=== PATIENT | male | born 1950 | race Asian ===

== ENCOUNTER 2016-08-21 07:50 | Outpatient (CLI) | payer OTHER | END 2016-08-21 07:51 | disposition home or self-care (01) | DX: K74.60 Unspecified cirrhosis of liver (principal); F10.10 Alcohol abuse, uncomplicated; B19.20 Unspecified viral hepatitis C without hepatic coma; D69.6 Thrombocytopenia, unspecified; I10 Essential (primary) hypertension; Z12.5 Encounter for screening for malignant neoplasm of prostate ==

== ENCOUNTER 2016-09-23 15:03 | Outpatient (CLI) | payer OTHER | END 2016-09-23 15:04 | disposition home or self-care (01) | DX: R42 Dizziness and giddiness (principal) ==

== ENCOUNTER 2016-10-06 07:42 | Outpatient (CLI) | payer OTHER ==
[2016-10-06] MEDS ORDERED: GADOBUTROL 10 MMOL/10 ML VIAL IVP ONE (08:39)
== END 2016-10-06 07:43 | disposition home or self-care (01) ==
DX: R42 Dizziness and giddiness (principal)
CPT/HCPCS: 70553; A9585

== ENCOUNTER 2018-01-23 11:20 | Emergency (ER) | payer OTHER ==
[2018-01-23 11:36] LABS: BASOPHILS % (AUTO) 0.6 %; EOSINOPHILS # (AUTO) 0.2 10^3/uL (0.0-0.7); EOSINOPHILS % (AUTO) 2.4 %; HGB - HEMOGLOBIN 14.9 g/dL (14.0-18.0); LYMPHOCYTES # (AUTO) 1.8 10^3/uL (1.5-3.5); LYMPHOCYTES % (AUTO) 22.9 %; MEAN CORPUSCULAR HEMOGLOBIN 29.4 pg (27.0-31.0); MEAN CORPUSCULAR HGB CONC 33.8 g/dL (32.0-36.0); MEAN CORPUSCULAR VOLUME 87.2 fL (80.0-94.0); MEAN PLATELET VOLUME 7.3 fL (7.4-11.4); MONOCYTES # (AUTO) 0.7 10^3/uL (0.0-1.0); MONOCYTES % (AUTO) 8.8 %; NEUTROPHILS # (AUTO) 5.1 10^3/uL (1.5-6.6); NEUTROPHILS % (AUTO) 65.3 %; PLT - PLATELET COUNT 102 10^3/uL (130-450); RED BLOOD COUNT 5.07 10^6/uL (4.70-6.10); RED CELL DISTRIBUTION WIDTH 14.2 % (12.0-15.0); WHITE BLOOD COUNT 7.8 x10^3/uL (4.8-10.8)
--- NOTE | 2018-01-23 11:38 | ED Physician Documentation ---
History of Present Illness - Stated complaint Stated Complaint: SZ - Chief complaint Chief Complaint: Neuro - Additonal information Additional information: hx from pt and 67 male hx HTN and per EMR Hep C to ED for seziure felt near syncoal then had 1 min of LOC with generalized tremors and about a 5 min perior of confusion c/w post ictal period no recent injury did not fall during seizure was breathing, no color change denies BREWER CP palp good health recently no fever, mild cough, no NVD has been on adiet and lost 50 ln takes a keto supplement and tumeric but no stimulants no EtOH no drugs smokes had brain MRI a year ago for light headed sx and it showed asymmetric CSF and he was seen by neuro who felt this was a benign finding Review of Systems Constitutional: denies: Fever, Chills Throat: denies: Sore throat Cardiac: denies: Chest pain / pressure, Palpitations Respiratory: reports: Cough. denies: Dyspnea GI: denies: Abdominal Pain, Nausea, Vomiting : denies: Dysuria Neurologic: reports: Syncope, Seizure, Confused. denies: Focal weakness, Numbness, Headache, Head injury Endocrine: denies: Easy bruising / bleeding Immunocompromised: denies: Immunocompromised PD PAST MEDICAL HISTORY - Past Medical History Past Medical History: Yes Cardiovascular: Hypertension Respiratory: None Endocrine/Autoimmune: None GI: GERD, Hepatitis : None Psych: Depression, Other Musculoskeletal: Osteoarthritis, Fatigue, Chronic back pain Derm: None - Past Surgical History General: Colonoscopy Ortho: Other - Present Medications Home Medications: Ambulatory Orders Medication Instructions Recorded Confirmed Hydrochlorothiazide 25 mg PO DAILY 10/24/15 10/24/15 Metoprolol Tartrate 50 mg PO BID 10/24/15 10/24/15 - Allergies Allergies/Adverse Reactions: Allergies Allergy/AdvReac Type Severity Reaction Status Date / Time No Known Drug Allergies Allergy Verified 10/24/15 10:41 - Social History Does the pt smoke?: Yes Smoking Status: Current every day smoker Does the pt drink ETOH?: No Does the pt have substance abuse?: No - Immunizations Immunizations are current?: Yes PD ED PE NORMAL - Vitals Vital signs reviewed: Yes - General General: Alert and oriented X 3 - HEENT HEENT: Atraumatic, PERRL - Neck Neck: Supple, no meningeal sign - Cardiac Cardiac: RRR - Respiratory Respiratory: No respiratory distress - Derm Derm: Normal color - Neuro Neuro: Alert and oriented X 3, reed dipper 2-12 intact, No motor deficit, No sensory deficit, Normal speech, Other (NIHSS zero) Eye Opening: Spontaneous Motor: Obeys Commands Verbal: Oriented GCS Score: 15 Results - Vitals Vitals: Vital Signs - 24 hr 01/23/18 01/23/18 01/23/18 11:25 12:19 12:46 Temperature 36.2 C L Heart Rate 40 L 62 66 Respiratory 18 18 16 Rate Blood Pressure 183/93 H 155/73 H 155/73 H O2 Saturation 100 100 97 01/23/18 13:24 Temperature Heart Rate 70 Respiratory 16 Rate Blood Pressure 129/67 O2 Saturation 95 Oxygen O2 Source Room air - EKG (time done) 1125 Rate: Rate (enter#) (53) Rhythm: Sinus bradycardia [place]: Normal Intervals: Normal [place] Ischemia: Normal ST segments - Labs Labs: Laboratory Tests 01/23/18 01/23/18 01/23/18 11:30 11:30 11:48 WBC 7.8 RBC 5.07 Hgb 14.9 Hct 44.2 MCV 87.2 MCH 29.4 MCHC 33.8 RDW 14.2 Plt Count 102 L MPV 7.3 L Neut # (Auto) 5.1 Lymph # (Auto) 1.8 [place] # (Auto) 0.7 Eos # (Auto) 0.2 Baso # (Auto) 0.0 Absolute Nucleated RBC 0.00 Nucleated RBC % 0.1 PT 13.6 H INR 1.2 Sodium 137 Potassium 3.4 L Chloride 100 L Carbon Dioxide 27 Anion Gap 10.0 BUN 11 Creatinine 1.1 Estimated GFR (MDRD) 67 L Glucose 113 H Calcium 9.5 Total Bilirubin 1.3 H AST 22 ALT 14 Alkaline Phosphatase 61 Total Protein 7.7 Albumin 4.7 Globulin 3.0 Albumin/Globulin Ratio 1.6 Lipase 40 - Rads (name of study) CXR Radiology: See rad report (nodule R lung base rec rpt with nippler marker) CT head Radiology: See rad report (no acute - stable from 2017) PD MEDICAL DECISION MAKING - ED course Complexity details: reviewed old records (HR is dipping into the 30s, sinus tiara), considered differential (suspect he has lost sig wt due to his diet and now his BB dose is too much and he is having med related sinus tiara causing syncope) ED course: upon initially arriving pt periodically had HR dip into the 30s some bigeminy noted on tele as well CT head no new acute process non focal neuro exam no other cause for syncope seizure identified will hold BB and dc with close PMD follow up slightly elev bili noted, pt has hx liver dx, prior bili was 1.1, no abd TTP - Sepsis Event Vital Signs: Vital Signs - 24 hr 01/23/18 01/23/18 01/23/18 11:25 12:19 12:46 Temperature 36.2 C L Heart Rate 40 L 62 66 Respiratory 18 18 16 Rate Blood Pressure 183/93 H 155/73 H 155/73 H O2 Saturation 100 100 97 01/23/18 13:24 Temperature Heart Rate 70 Respiratory 16 Rate Blood Pressure 129/67 O2 Saturation 95 Oxygen O2 Source Room air Departure - Departure Disposition: 01 Home, Self Care Clinical Impression: Bradycardia Syncope Qualifiers: Syncope type: unspecified Qualified Code(s): R55 - Syncope and collapse Condition: Good Instructions: ED Fainting Unkn Cause Follow-Up: Morris Juan MD [Primary Care Provider] - (Thursday for a recheck) Comments: Your labs looked fine except for a slightly low potassium which was replaced and a slightly elevated bilirubnin level which is not new for you. The CT scan of the brain was fine - no change from your prior MRI The xray was fine too - the radiologist thought you might have a lung nodule but it was just a nipple shadow I think you passed out because your heart was beating too slow - we saw your heart rate as low as 30s when you arrive I suspect that with your recent weight loss, the beta low dose is too much for you. I think it is safe for you to go home for the rest of the weekend if you have another person to drive you and stay with you. Do not take the metoprolol at all this Then follow up with Dr Juan Thursday for a recheck to decide of you should stop the metoprolol all together or just decrease the dose. 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
[2018-01-23 11:47] LABS: ALBUMIN 4.7 g/dL (3.2-5.5); ALBUMIN/GLOBULIN RATIO 1.6 (1.0-2.2); BILIRUBIN,TOTAL 1.3 mg/dL (0.2-1.0); CALCIUM 9.5 mg/dL (8.5-10.3); CREATININE 1.1 mg/dL (0.6-1.2); TOTAL PROTEIN 7.7 g/dL (6.7-8.2)
[2018-01-23 11:57] LABS: INR 1.2 (0.8-1.2); PT - PROTHROMBIN TIME 13.6 secs (9.9-12.6)
--- NOTE | 2018-01-23 12:11 | CT Report ---
Procedure Date: 01/23/2018 Accession Number: [id number] / [id number] Procedure: CT - Head W/O CPT Code: FULL RESULT: EXAM: CT HEAD EXAM DATE: 01/23/2018 11:50 AM. CLINICAL HISTORY: 1st time seizure. COMPARISON: Brain MRI 10/06/2016. TECHNIQUE: Multiaxial CT images were obtained from the foramen magnum to the vertex. Reformats: Sagittal and coronal. IV contrast: None. In accordance with CT protocol optimization, one or more of the following dose reduction techniques were utilized for this exam: automated exposure control, adjustment of mA and/or KV based on patient size, or use of iterative reconstructive technique. FINDINGS: Parenchyma: No intraparenchymal hemorrhage. No evidence of or CT findings of infarction. Bull-white differentiation is distinct. There is stable mild 3 mm midline shift to the right as before. Extraaxial Spaces: As seen on prior MRI from 2016, there is asymmetric prominence of the extra-axial fluid overlying the left cerebral hemisphere. This was thought to represent expanded CSF space rather than subdural hygroma or chronic subdural hematoma. No subdural or epidural collections identified. Ventricles: Normal in size and position. Sinuses and Orbits: Imaged paranasal sinuses, orbits, and mastoids show no significant abnormality. Bones: No evidence of fracture or calvarial defect. Other: None. IMPRESSION: 1. No acute intracranial abnormality including intracranial hemorrhage or CT evidence of acute stroke. 2. No intracranial mass. 3. No change in the appearance of the asymmetric prominence of the extra-axial fluid in the left cerebral hemisphere which is thought to represent expanded CSF space rather subdural hygroma or chronic subdural hematoma. In addition, there is midline shift to the right as before. These findings have been stable since September 2016. [facility]
--- NOTE | 2018-01-23 12:43 | XRAY Report ---
Procedure Date: 01/23/2018 Accession Number: [id number] / [id number] Procedure: XR - Chest 2 View X-Ray CPT Code: 72951 FULL RESULT: EXAM: CHEST RADIOGRAPHY EXAM DATE: 01/23/2018 12:11 PM. CLINICAL HISTORY: Right sided wheeze and cough. COMPARISON: 12/13/2014. TECHNIQUE: 2 views. FINDINGS: Lungs/Pleura: There is a small 9 mm nodule at the right lung base seen at the level of the posterior right 9th and 10th ribs. It is possible this is the nipple, but there is no definitive similar-appearing structure on the left side. This is not seen on the lateral view. No pleural effusions. No acute airspace disease. No pneumothorax. Mediastinum: Heart and mediastinal contours are unremarkable. Other: None. IMPRESSION: Small nodule at the right lung base is probably superimposed nipple. Recommend repeat frontal film with nipple marker. This was discussed with Dr. Zhang at 12:36 PM on 01/23/2018. [facility]
--- NOTE | 2018-01-23 13:23 | XRAY Report ---
Procedure Date: 01/23/2018 Accession Number: [id number] / [id number] Procedure: XR - Chest 1 View X-Ray CPT Code: 53846 FULL RESULT: EXAM: CHEST RADIOGRAPHY EXAM DATE: 01/23/2018 12:00 PM. CLINICAL HISTORY: Repeat study with right nipple marker. Possible small nodule in the right lung base. COMPARISON: 01/23/2018 earlier study. TECHNIQUE: 1 view. FINDINGS: Lungs/Pleura: No focal opacities evident. No pleural effusion. No pneumothorax. Nipple marker placed over the peripheral right lower lung. Nodular density projected over the right lower lung corresponds to a nipple shadow noted on the prior study. Mediastinum: Heart size and mediastinal contour are unremarkable. Other: None. IMPRESSION: 1. No acute disease in the chest or 2. Nodular density noted on the recent prior study corresponds to a prominent nipple shadow. RAD[facility]
[2018-01-23 13:25] VITALS: BP 129/67
[2018-01-23] MEDS ORDERED: POTASSIUM CHLORIDE 20 MEQ TABLET PO STA (13:25)
== END 2018-01-23 13:41 | disposition home or self-care (01) ==
LOC: ED 11:20
DX: R00.1 Bradycardia, unspecified (principal); R55 Syncope and collapse; B19.20 Unspecified viral hepatitis C without hepatic coma; I10 Essential (primary) hypertension; F17.200 Nicotine dependence, unspecified, uncomplicated
CPT/HCPCS: 36415; 70450; 71045; 71046; 80053; 83690; 85025; 85610; 93005; 99283; 99284; A9270

== ENCOUNTER 2018-03-25 13:07 | Outpatient (CLI) | payer OTHER ==
[2018-03-25 19:20] LABS: ALBUMIN 4.6 g/dL (3.2-5.5); ALBUMIN/GLOBULIN RATIO 1.5 (1.0-2.2); ALKALINE PHOSPHATASE 62 IU/L (42-121); ALT ALANINE AMINOTRANSFERASE 17 IU/L (10-60); AST ASPARTATE AMINOTRANSFERASE 25 IU/L (10-42); BILIRUBIN,TOTAL 0.9 mg/dL (0.2-1.0); BUN - BLOOD UREA NITROGEN 17 mg/dL (6-20); CALCIUM 9.4 mg/dL (8.5-10.3); CARBON DIOXIDE - CO2 28 mmol/L (21-32); CHLORIDE 101 mmol/L (101-111); CHOLESTEROL 200 mg/dL; GFR - MDRD 74 (>89); GLUCOSE 110 mg/dL (70-100); HDL CHOLESTEROL 50 mg/dL; LDL CHOLESTEROL,CALCULATED 127 mg/dL; LDL/HDL RATIO 2.5 (<3.6); SODIUM 137 mmol/L (135-145); TOTAL PROTEIN 7.7 g/dL (6.7-8.2); VLDL CHOLESTEROL 23 mg/dL
[2018-03-25 19:27] LABS: BASOPHILS % (AUTO) 0.4 %; EOSINOPHILS # (AUTO) 0.2 10^3/uL (0.0-0.7); EOSINOPHILS % (AUTO) 3.3 %; HGB - HEMOGLOBIN 14.3 g/dL (14.0-18.0); LYMPHOCYTES % (AUTO) 27.5 %; MEAN CORPUSCULAR HEMOGLOBIN 29.8 pg (27.0-31.0); MEAN CORPUSCULAR HGB CONC 33.6 g/dL (32.0-36.0); MEAN CORPUSCULAR VOLUME 88.5 fL (80.0-94.0); MEAN PLATELET VOLUME 7.8 fL (7.4-11.4); MONOCYTES # (AUTO) 0.5 10^3/uL (0.0-1.0); MONOCYTES % (AUTO) 6.1 %; NEUTROPHILS # (AUTO) 4.6 10^3/uL (1.5-6.6); NEUTROPHILS % (AUTO) 62.7 %; PLT - PLATELET COUNT 117 10^3/uL (130-450); RED BLOOD COUNT 4.82 10^6/uL (4.70-6.10); RED CELL DISTRIBUTION WIDTH 15.5 % (12.0-15.0); WHITE BLOOD COUNT 7.4 x10^3/uL (4.8-10.8)
== END 2018-03-25 13:08 | disposition home or self-care (01) ==
LOC: LAB.WCP 13:07
PROVIDERS: ATTEND Family Medicine
DX: B19.20 Unspecified viral hepatitis C without hepatic coma (principal); D69.6 Thrombocytopenia, unspecified; I10 Essential (primary) hypertension; Z12.5 Encounter for screening for malignant neoplasm of prostate
CPT/HCPCS: 36415; 80053; 80061; 83721; 84153; 85025

== ENCOUNTER 2018-09-21 08:00 | Outpatient (CLI) | payer OTHER ==
[2018-09-21 18:54] LABS: BASOPHILS % (AUTO) 0.7 %; EOSINOPHILS # (AUTO) 0.3 10^3/uL (0.0-0.7); HGB - HEMOGLOBIN 14.8 g/dL (14.0-18.0); LYMPHOCYTES # (AUTO) 2.2 10^3/uL (1.5-3.5); LYMPHOCYTES % (AUTO) 33.1 %; MEAN CORPUSCULAR HEMOGLOBIN 31.1 pg (27.0-31.0); MEAN CORPUSCULAR HGB CONC 33.4 g/dL (32.0-36.0); MEAN CORPUSCULAR VOLUME 93.1 fL (80.0-94.0); MEAN PLATELET VOLUME 7.8 fL (7.4-11.4); MONOCYTES # (AUTO) 0.4 10^3/uL (0.0-1.0); MONOCYTES % (AUTO) 5.4 %; NEUTROPHILS # (AUTO) 3.7 10^3/uL (1.5-6.6); NEUTROPHILS % (AUTO) 55.8 %; PLT - PLATELET COUNT 130 10^3/uL (130-450); RED BLOOD COUNT 4.75 10^6/uL (4.70-6.10); RED CELL DISTRIBUTION WIDTH 13.3 % (12.0-15.0); WHITE BLOOD COUNT 6.7 x10^3/uL (4.8-10.8)
[2018-09-21 19:06] LABS: ALBUMIN 4.7 g/dL (3.2-5.5); ALBUMIN/GLOBULIN RATIO 1.5 (1.0-2.2); BILIRUBIN,TOTAL 0.8 mg/dL (0.2-1.0); CALCIUM 9.7 mg/dL (8.5-10.3); CREATININE 1.1 mg/dL (0.6-1.2); TOTAL PROTEIN 7.9 g/dL (6.7-8.2)
== END 2018-09-21 23:59 | disposition home or self-care (01) ==
LOC: LAB.WCP 08:00
PROVIDERS: ATTEND Family Medicine
DX: K22.70 Barrett's esophagus without dysplasia (principal); B19.20 Unspecified viral hepatitis C without hepatic coma; I10 Essential (primary) hypertension
CPT/HCPCS: 36415; 80053; 85025

== ENCOUNTER 2018-12-24 07:20 | Outpatient (CLI) | payer OTHER ==
--- NOTE | 2018-12-27 19:45 | Ultrasound Report ---
Reason: CIRRHOSIS OF LIVER,HX OF HEPATITIS Procedure Date: 12/24/2018 Accession Number: [id number] / [id number] Procedure: US - Abdomen Limited CPT Code: FULL RESULT: EXAM: ABDOMEN ULTRASOUND LIMITED, RUQ EXAM DATE: 12/24/2018 08:04 AM. CLINICAL HISTORY: CIRRHOSIS OF LIVER,HX OF HEPATITIS. COMPARISON: ABDOMEN LIMITED 03/25/2016 9:48 AM. TECHNIQUE: Real-time scanning was performed with static images obtained. FINDINGS: Liver: Mild diffuse increased echotexture, suggestive of steatosis. No suggestion of nodularity or other sonographic signs of cirrhosis. 16.9 cm, mildly enlarged. Main portal vein flow: Hepatopetal. Gallbladder: Normal. No stones, wall thickening, or sonographic Keenan's sign. Biliary System: CBD measures 4 mm. No intrahepatic or extrahepatic ductal dilatation. Other: Right kidney measures 11 cm without hydronephrosis. A Simple cyst in the superior pole of right kidney measures 1.5 x 1.4 x 1.3 cm. IMPRESSION: Mildly enlarged liver with diffuse increased parenchymal echotexture of liver, suggestive of steatosis. No sonographic suggestion of cholelithiasis or cholecystitis. RAD[facility]
== END 2018-12-24 07:21 | disposition home or self-care (01) ==
LOC: DI 07:20
PROVIDERS: ATTEND Physician Assistant
DX: K74.60 Unspecified cirrhosis of liver (principal); Z86.19 Personal history of other infectious and parasitic diseases
CPT/HCPCS: 76705

== ENCOUNTER 2019-03-07 08:00 | Outpatient (CLI) | payer OTHER ==
[2019-03-07 12:38] LABS: BUN - BLOOD UREA NITROGEN 10 mg/dL (6-20); CALCIUM 9.1 mg/dL (8.5-10.3); CARBON DIOXIDE - CO2 30 mmol/L (21-32); CHLORIDE 104 mmol/L (101-111); CHOL/HDL RATIO 3.1 (<5.0); CHOLESTEROL 148 mg/dL; GFR - MDRD 74 (>89); GLUCOSE 81 mg/dL (70-100); HDL CHOLESTEROL 48 mg/dL; LDL CHOLESTEROL,CALCULATED 70 mg/dL; LDL/HDL RATIO 1.5 (<3.6); SODIUM 140 mmol/L (135-145); VLDL CHOLESTEROL 30 mg/dL
== END 2019-03-07 23:59 | disposition home or self-care (01) ==
LOC: LAB.WCP 08:00
PROVIDERS: ATTEND Internal Medicine Cardiovascular Disease
DX: I10 Essential (primary) hypertension (principal); E78.5 Hyperlipidemia, unspecified
CPT/HCPCS: 36415; 80048; 80061; 83721

== ENCOUNTER 2019-04-22 07:00 | Outpatient (CLI) | payer OTHER | END 2019-04-22 23:59 | disposition home or self-care (01) | LOC: LAB.WCP 07:00 | PROVIDERS: ATTEND Nurse Practitioner Family | DX: M10.9 Gout, unspecified (principal) | CPT/HCPCS: 36415; 84550; 85651 ==

== ENCOUNTER 2019-08-09 08:21 | Outpatient (CLI) | payer BC ==
--- NOTE | 2019-08-09 09:56 | Ultrasound Report ---
Reason: CIRRHOSIS OF LIVER Procedure Date: 08/09/2019 Accession Number: [id number] / [id number] Procedure: US - Abdomen Limited CPT Code: Final Report FULL RESULT: EXAM: ABDOMEN ULTRASOUND LIMITED, RUQ EXAM DATE: 08/09/2019 08:50 AM. CLINICAL HISTORY: Hepatic cirrhosis. COMPARISON: ABDOMEN LIMITED 12/24/2018 7:28 AM. TECHNIQUE: Real-time scanning was performed with static images obtained. FINDINGS: Liver: The liver is normal in size measuring 15.1 cm in length. Course uniform increased echogenicity of the hepatic parenchyma, compatible with diffuse hepatocellular disease. Nodular liver contour. No focal hepatic lesion is identified sonographically. No intrahepatic biliary dilation. Main portal vein flow: Hepatopetal. Gallbladder: Normal. No stones, wall thickening or sonographic Keenan's sign. Gallbladder wall thickness is 2.5 mm. Biliary System: CBD measures 4.4 mm. No intrahepatic or extrahepatic ductal dilatation. Right kidney: Orthotopic measuring 11.3 x 4 x 5.5 cm in diameter. Anechoic lesion in the upper pole renal cortex measuring 1.5 x 1.3 x 1.3 cm in diameter. No hydronephrosis, calcification, perinephric collection or ureteral dilation. IMPRESSION: 1. Hepatic cirrhosis. No focal hepatic lesion. 2. Hepatopetal flow in the main portal vein. 3. Upper pole simple right renal cortical cyst measuring 1.5 x 1.3 x 1.3 cm in diameter. RADIA
== END 2019-08-09 08:22 | disposition home or self-care (01) ==
LOC: DI 08:21
PROVIDERS: ATTEND Physician Assistant
DX: K74.60 Unspecified cirrhosis of liver (principal); N28.1 Cyst of kidney, acquired
CPT/HCPCS: 76705

== ENCOUNTER 2019-08-12 07:36 | Outpatient (CLI) | payer BC ==
[2019-08-12 13:25] LABS: BASOPHILS % (AUTO) 0.6 %; EOSINOPHILS # (AUTO) 0.4 10^3/uL (0.0-0.7); EOSINOPHILS % (AUTO) 5.6 %; LYMPHOCYTES # (AUTO) 2.2 10^3/uL (1.5-3.5); LYMPHOCYTES % (AUTO) 32.8 %; MEAN CORPUSCULAR HEMOGLOBIN 28.9 pg (27.0-31.0); MEAN CORPUSCULAR HGB CONC 31.3 g/dL (32.0-36.0); MEAN CORPUSCULAR VOLUME 92.5 fL (80.0-94.0); MEAN PLATELET VOLUME 10.2 fL (7.4-11.4); MONOCYTES # (AUTO) 0.6 10^3/uL (0.0-1.0); MONOCYTES % (AUTO) 8.1 %; NEUTROPHILS # (AUTO) 3.6 10^3/uL (1.5-6.6); NEUTROPHILS % (AUTO) 52.6 %; PLT - PLATELET COUNT 151 10^3/uL (130-450); RED BLOOD COUNT 5.19 10^6/uL (4.70-6.10); RED CELL DISTRIBUTION WIDTH 13.8 % (12.0-15.0); WHITE BLOOD COUNT 6.8 x10^3/uL (4.8-10.8)
[2019-08-12 13:58] LABS: ALBUMIN 4.7 g/dL (3.2-5.5); ALKALINE PHOSPHATASE 59 IU/L (42-121); ALT ALANINE AMINOTRANSFERASE 17 IU/L (10-60); AST ASPARTATE AMINOTRANSFERASE 20 IU/L (10-42); BILIRUBIN,DIRECT 0.1 mg/dL (0.1-0.5); BILIRUBIN,TOTAL 0.7 mg/dL (0.2-1.0); CHOLESTEROL 123 mg/dL; GLUCOSE,FASTING 97 mg/dL (70-100); HDL CHOLESTEROL 41 mg/dL; LDL CHOLESTEROL,CALCULATED 65 mg/dL; LDL/HDL RATIO 1.6 (<3.6); TOTAL PROTEIN 7.6 g/dL (6.7-8.2); VLDL CHOLESTEROL 17 mg/dL
== END 2019-08-12 23:59 | disposition home or self-care (01) ==
LOC: LAB.WCP 07:36
PROVIDERS: ATTEND Physician Assistant
DX: K74.60 Unspecified cirrhosis of liver (principal)
CPT/HCPCS: 36415; 80061; 80076; 82105; 82947; 83721; 85025

== ENCOUNTER 2020-04-11 07:31 | Outpatient (CLI) | payer BC ==
--- NOTE | 2020-04-11 10:11 | Ultrasound Report ---
PROCEDURE: Abdomen Limited INDICATIONS: CIRRHOSIS OF LIVER TECHNIQUE: Real-time focused scanning was performed of the abdomen, with image documentation. COMPARISON: Prior ultrasound 08/09/2019, 12/24/2018, 03/25/2016. FINDINGS: Study is limited at clinician request. The liver is 17.9 cm craniocaudad and is echogenic with some degree of coarse echotexture indicating likelihood of a combination of fatty infiltration a nd mild sclerosis. Mild nodular margination along the capsular border noted. No biliary distention or masses. The gallbladder appears normal. The common bile duct measures 5.1 mm in dimension, normal. Right kidney is free of hydronephrosis or nephrolithiasis and contains a 1.5 c m maximal dimension right renal cortical cyst superiorly. IMPRESSION: Mildly coarse diffusely hyperechoic liver parenchyma, consistent with a combination of fatty infiltra tion and mild sclerosis. No hepatic mass lesion is found, no biliary distention or gallstones identif ied. No ascites is found. Reviewed by: Te Waterman MD on 04/11/2020 10:10 AM PDT Approved by: Te Waterman MD on 04/11/2020 10:10 AM PDT Station ID: [id number]
== END 2020-04-11 07:32 | disposition home or self-care (01) ==
LOC: DI 07:31
PROVIDERS: ATTEND Physician Assistant
DX: R93.2 Abnormal findings on diagnostic imaging of liver and biliary tract (principal)
CPT/HCPCS: 76705

== ENCOUNTER 2021-02-15 07:43 | Outpatient (CLI) | payer BC ==
--- NOTE | 2021-02-15 11:35 | Ultrasound Report ---
PROCEDURE: Abdomen Limited INDICATIONS: CIRRHOSIS OF LIVER TECHNIQUE: Real-time focused scanning was performed of the abdomen, with image documentation. COMPARISON: Prior abdominal ultrasounds studies 04/11/2020, 08/09/2019, 12/24/2018 FINDINGS: The liver is not enlarged in size but is lobulated along its capsular border consistent wi th cirrhosis and appears echogenic consistent with fatty infiltration. The gallbladder appears normal , the common bile duct is normal in caliber. The pancreas visualized appears normal and the right kid debra appears free of hydronephrosis or nephrolithiasis with a small simple appearing 1.6 cm upper kianna l cortical cyst. IMPRESSION: Again noted is hepatic steatosis, with lobulated capsular hepatic borders consistent with cirrhosis b ut no evidence of ascites or varices has developed. A hepatic mass lesion is not seen. Reviewed by: Te Waterman MD on 02/15/2021 11:33 AM PDT Approved by: Te Waterman MD on 02/15/2021 11:33 AM PDT Station ID: [id number]
== END 2021-02-15 07:44 | disposition home or self-care (01) ==
LOC: DI 07:43
PROVIDERS: ATTEND Physician Assistant
DX: K74.60 Unspecified cirrhosis of liver (principal); K76.0 Fatty (change of) liver, not elsewhere classified

== ENCOUNTER 2021-09-27 06:57 | Outpatient (CLI) | payer OTHER ==
--- NOTE | 2021-09-27 14:50 | Ultrasound Report ---
PROCEDURE: Abdomen Limited INDICATIONS: CIRRHOSIS OF LIVER TECHNIQUE: Real-time scanning was performed of the abdominal and retroperitoneal organs, with image documentatio n. COMPARISON: None. FINDINGS: Liver: Liver is normal in size and increased in echotexture. Gallbladder: No stones. Wall thickness is normal measuring 2 mm. Biliary ducts: Intrahepatic bile ducts are non-dilated. Extrahepatic bile duct caliber measures 4.8 mm. Normal is 6-7 mm or less in diameter, or 10 mm or less post-cholecystectomy. Pancreas: Visualized portions of the pancreas are sonographically normal. Kidneys: Right kidney measures 10.9 cm long. No hydronephrosis or nephrolithiasis. No solid masses . Simple renal cyst is present measuring 20 x 19 x 19 mm in the superior pole. Aorta: Visualized aorta is normal in caliber at less than 3 cm. Iliacs: Proximal common iliac arteries are normal in caliber at less than 2.5 cm. IVC: Intrahepatic inferior vena cava is patent. Miscellaneous: No free abdominal fluid. 1.3 cm loren hepatis lymph node. IMPRESSION: Hepatic steatosis. Reviewed by: Ning Luz MD on 09/27/2021 2:49 PM PDT Approved by: Ning Luz MD on 09/27/2021 2:49 PM PDT Station ID: [id number]
== END 2021-09-27 06:58 | disposition home or self-care (01) ==
LOC: DI 06:57
PROVIDERS: ATTEND Physician Assistant
DX: K74.60 Unspecified cirrhosis of liver (principal); Z86.19 Personal history of other infectious and parasitic diseases; K76.0 Fatty (change of) liver, not elsewhere classified
CPT/HCPCS: 36415; 80076; 81599; 82105; 85025

== ENCOUNTER 2022-04-23 07:18 | Outpatient (CLI) | payer OTHER ==
--- NOTE | 2022-04-24 10:30 | Ultrasound Report ---
PROCEDURE: Abdomen Limited INDICATIONS: CIRRHOSIS TECHNIQUE: Real-time focused scanning was performed of the abdomen, with image documentation. COMPARISON: Ultrasound abdomen, limited, 09/27/2021. FINDINGS: Liver: Liver is normal in size and demonstrates mildly increased echotexture. No focal hepatic mass . Gallbladder: The gallbladder is normal. No gallstones, gallbladder wall thickening, pericholecystic f luid collection or no sonographic Keenan sign. Biliary ducts: Intrahepatic bile ducts are non-dilate d. Extrahepatic bile duct caliber measures 3.4 mm. Normal is 6-7 mm or less in diameter, or 10 mm o r less post-cholecystectomy. Pancreas: Visualized portions of the pancreas are sonographically normal. Right Kidney: Right kidney is normal in size and echotexture measuring 11.6 cm in length. There is a 4 mm nonobstructive stone in mid right kidney. No hydronephrosis. There is a 2.1 cm simple cyst in t he superior pole of right kidney. No solid masses. Miscellaneous: No free abdominal fluid. IMPRESSION: 1. Liver demonstrates diffuse increased echotexture consistent with chronic hepatocellular disease benítez ch as cirrhosis. 2. No focal hepatic mass. Reviewed by: Areli Salas MD on 04/24/2022 10:29 AM PDT Approved by: Areli Salas MD on 04/24/2022 10:29 AM PDT Station ID: [id number]
== END 2022-04-23 07:19 | disposition home or self-care (01) ==
LOC: DI 07:18
PROVIDERS: ATTEND Physician Assistant
DX: K74.60 Unspecified cirrhosis of liver (principal); Z86.19 Personal history of other infectious and parasitic diseases

== ENCOUNTER 2022-08-01 07:16 | Outpatient (CLI) | payer OTHER ==
[2022-08-01 07:34] LABS: BASOPHILS # (AUTO) 0.1 10^3/uL (0.0-0.1); EOSINOPHILS # (AUTO) 0.3 10^3/uL (0.0-0.7); EOSINOPHILS % (AUTO) 5.4 %; HCT - HEMATOCRIT 41.6 % (42.0-52.0); HGB - HEMOGLOBIN 13.3 g/dL (14.0-18.0); LYMPHOCYTES # (AUTO) 1.8 10^3/uL (1.5-3.5); LYMPHOCYTES % (AUTO) 28.4 %; MEAN CORPUSCULAR HEMOGLOBIN 28.6 pg (27.0-31.0); MEAN CORPUSCULAR VOLUME 89.5 fL (80.0-94.0); MEAN PLATELET VOLUME 9.2 fL (7.4-11.4); MONOCYTES # (AUTO) 0.5 10^3/uL (0.0-1.0); MONOCYTES % (AUTO) 7.3 %; NEUTROPHILS # (AUTO) 3.6 10^3/uL (1.5-6.6); NEUTROPHILS % (AUTO) 57.7 %; PLT - PLATELET COUNT 105 10^3/uL (130-450); RED BLOOD COUNT 4.65 10^6/uL (4.70-6.10); RED CELL DISTRIBUTION WIDTH 14.4 % (12.0-15.0); WHITE BLOOD COUNT 6.3 x10^3/uL (4.8-10.8)
[2022-08-01 07:52] LABS: % IRON SATURATION 17 % (20-50); ALBUMIN 4.6 g/dL (3.2-5.5); ALBUMIN/GLOBULIN RATIO 1.5 (1.0-2.2); ALKALINE PHOSPHATASE 57 IU/L (42-121); ALT ALANINE AMINOTRANSFERASE 20 IU/L (10-60); AST ASPARTATE AMINOTRANSFERASE 26 IU/L (10-42); BILIRUBIN,TOTAL 0.6 mg/dL (0.2-1.0); BUN - BLOOD UREA NITROGEN 12 mg/dL (6-20); CALCIUM 9.4 mg/dL (8.5-10.3); CARBON DIOXIDE - CO2 27 mmol/L (21-32); CHLORIDE 101 mmol/L (101-111); CHOL/HDL RATIO 3.2 (<5.0); CHOLESTEROL 118 mg/dL; CREATININE 1.2 mg/dL (0.6-1.2); GFR - MDRD 59 (>89); GLUCOSE 107 mg/dL (70-100); HDL CHOLESTEROL 37 mg/dL; IRON 61 ug/dL (45-182); LDL CHOLESTEROL,CALCULATED 64 mg/dL; LDL/HDL RATIO 1.7 (<3.6); POTASSIUM 4.3 mmol/L (3.5-5.0); SODIUM 139 mmol/L (135-145); TOTAL IRON BINDING CAPACITY 356 ug/dL (250-450); TOTAL PROTEIN 7.7 g/dL (6.7-8.2); TRANSFERRIN 254 mg/dL (180-329); TRIGLYCERIDES 87 mg/dL; URIC ACID 5.8 mg/dL (2.6-7.2); VLDL CHOLESTEROL 17 mg/dL
[2022-08-01 08:12] LABS: FERRITIN 46.4 ng/mL (23.9-336.2)
[2022-08-01 08:15] LABS: FOLATE 11.61 ng/mL (5.90 - >24.8)
[2022-08-01 08:31] LABS: THYROID STIMULATING HORMONE 59.52 uIU/mL (0.34-5.60)
[2022-08-01 09:06] LABS: FREE T4 (FREE THYROXINE) < 0.25 ng/dL (0.58-1.64)
== END 2022-08-01 07:17 | disposition home or self-care (01) ==
LOC: LAB 07:16
PROVIDERS: ATTEND Nurse Practitioner
DX: K74.60 Unspecified cirrhosis of liver (principal); I10 Essential (primary) hypertension; Z13.220 Encounter for screening for lipoid disorders; E78.5 Hyperlipidemia, unspecified; G62.9 Polyneuropathy, unspecified; D69.6 Thrombocytopenia, unspecified; R53.83 Other fatigue; M10.9 Gout, unspecified
CPT/HCPCS: 36415; 80053; 80061; 82105; 82607; 82728; 82746; 83540; 83721; 84439; 84443; 84466; 84550; 85025

== ENCOUNTER 2022-09-01 06:46 | Outpatient (CLI) | payer OTHER ==
--- NOTE | 2022-09-01 15:19 | Ultrasound Report ---
PROCEDURE: Abdomen Complete INDICATIONS: CIRRHOSIS TECHNIQUE: Real-time scanning was performed of the abdominal and retroperitoneal organs, with image documentatio n. COMPARISON: 04/23/2022. FINDINGS: Liver: No suspicious focal lesion identified. Echogenic. Main portal vein patent with antegrade flow Gallbladder: No stones, wall thickening, or sonographic Keenan sign Biliary ducts: Intrahepatic bile ducts are non-dilated. Extrahepatic bile duct caliber measures 4 m m. Normal is 6-7 mm or less in diameter, or 10 mm or less post-cholecystectomy. Pancreas: Visualized portions of the pancreas are sonographically normal. Spleen: Spleen is normal in size . Kidneys: Kidneys are normal in size and echotexture. Right kidney measures 12.0 cm long; left kidne y measures 11.7 cm long. No hydronephrosis. Possible 6 mm nonobstructing right renal stone. Renal co rtical cysts are present without suspicious features identified Aorta: Visualized aorta is normal in caliber at less than 3 cm. Iliacs: Proximal common iliac arteries are normal in caliber at less than 2.5 cm. IVC: Intrahepatic inferior vena cava is patent. Miscellaneous: No free abdominal fluid. IMPRESSION: No suspicious focal liver lesion identified sonographically The liver is echogenic, a nonspecific finding commonly seen in the setting of steatosis. Reviewed by: Gurinder Samano MD on 09/01/2022 3:17 PM PDT Approved by: Gurinder Samano MD on 09/01/2022 3:17 PM PDT Station ID: [id number]
== END 2022-09-01 06:47 | disposition home or self-care (01) ==
LOC: DI 06:46
PROVIDERS: ATTEND Nurse Practitioner
DX: K74.60 Unspecified cirrhosis of liver (principal)

== ENCOUNTER 2023-08-21 08:42 | Outpatient (CLI) | payer OTHER ==
--- NOTE | 2023-08-21 13:51 | XRAY Report ---
PROCEDURE: Shoulder 2+V BL INDICATIONS: BILATERAL SHOULDER PAIN TECHNIQUE: 3 views of the shoulder were acquired. COMPARISON: None. FINDINGS: Bones: No fractures or dislocations. No suspicious bony lesions. Visualized ribs appear intact. T here is widening of the right acromioclavicular joint space measuring 1.8 cm. Severe narrowing is pre sent on the left. Bilateral mild glenohumeral narrowing. Soft tissues: No suspicious soft tissue calcifications. The visualized lungs are within normal limi ts. Pacemaker is partially visualized. IMPRESSION: Prominent glenohumeral and acromioclavicular narrowing on the left. Widening of the acromioclavicular joint space on the right. This may represents brain. However, recom mend correlation to any prior distal clavicular resection. Reviewed by: Ning Luz MD on 08/21/2023 1:50 PM [facility] Approved by: Ning Luz MD on 08/21/2023 1:50 PM PST Station ID: [id number]
== END 2023-08-21 08:43 | disposition home or self-care (01) ==
LOC: DI 08:42
PROVIDERS: ATTEND Nurse Practitioner
DX: M19.012 Primary osteoarthritis, left shoulder (principal); M19.011 Primary osteoarthritis, right shoulder

== ENCOUNTER 2024-02-10 11:44 | Outpatient (CLI) | payer OTHER ==
--- NOTE | 2024-02-10 22:52 | Ultrasound Report ---
PROCEDURE: Abdomen Limited INDICATIONS: CIRRHOSIS TECHNIQUE: Real-time focused scanning was performed of the abdomen, with image documentation. COMPARISONS: Prior abdominal ultrasound dated 09/01/2022 FINDINGS: Liver: Liver is diffusely increased in echogenicity. No discrete liver masses seen. Findings similar prior exam. Gallbladder: No gallstones, sludge, wall thickening or pericholecystic edema. Biliary ducts: Intrahepatic bile ducts are non-dilated. Extrahepatic bile duct caliber measures 5.4 mm. Normal is 6-7 mm or less in diameter, or 10 mm or less post-cholecystectomy. Pancreas: Visualized portions of the pancreas are sonographically normal. Right kidney: Normal in size and echotexture. Right kidney measures 11.1 cm long. No hydronephrosis or nephrolithiasis. No solid masses. No complex renal cystic lesions which require follow-up. Simple right renal cyst redemonstrated measuring 2.3 cm IVC: Intrahepatic inferior vena cava is patent. Miscellaneous: No free abdominal fluid. Roseann hepatis lymph node similar to prior exam. IMPRESSION: 1. Increased hepatic echogenicity similar to prior examination suggestive of hepatic steatosis; howev er differential would include other processes such as hepatic cirrhosis. No discrete liver masses see n. 2. Simple right hepatic cyst redemonstrated measuring 2.3 cm. 3. Roseann hepatis lymph node similar prior exam. Reviewed by: ANNE Can on 02/10/2024 10:51 PM PDT Approved by: Ning Luz MD on 02/10/2024 10:51 PM PDT Station ID: [id number]
== END 2024-02-10 11:45 | disposition home or self-care (01) ==
LOC: DI 11:44
PROVIDERS: ATTEND Physician Assistant
DX: K70.30 Alcoholic cirrhosis of liver without ascites (principal); K76.89 Other specified diseases of liver; R59.0 Localized enlarged lymph nodes